=== PATIENT | female | born 1940 | race Caucasian/White ===

== ENCOUNTER 2017-03-04 14:14 | Outpatient (CLI) | payer MEDICARE, BC ==
[2014-05-20 06:21] VITALS: BP 120/74
[2017-03-04 14:38] LABS: BASOPHILS % 0.9 (0.0-1.5); EOSINOPHILS % 5.1 % (0.0-6.8); MONOCYTES % 7.8 % (0.0-11.0); NEUTROPHILS # 3.9 # k/uL (1.4-7.7)
[2017-03-04 15:03] LABS: eGFR (African) > 60; eGFR (Non-African) > 60
== END 2017-03-04 14:15 ==
LOC: LAB 14:14
PROVIDERS: ATTEND Family Medicine
DX: R53.83 Other fatigue (principal)
CPT/HCPCS: 36415; 80053; 84443; 85025

== ENCOUNTER 2017-07-10 13:34 | Outpatient (CLI) | payer MEDICARE, BC ==
[2014-05-20 06:21] VITALS: BP 120/74
--- NOTE | 2017-07-10 17:51 | Diagnostic Imaging Report ---
CARISSA GRIFFIN [facility] [address] [facility].[address] [address] Report Submission Date: July 10, 2017 2:01:11 PM CDT Patient Study Name: KWABENA AYON Date: July 10, 2017 1:41:58 PM CDT Modality Type: DX Gender: F Description: LOWER EXTREMITY : 40 Institution: [facility] Physician: CARISSA GRIFFIN Examination: Plain film left foot History: RT FOOT, PAIN IN BASE OF 4TH AND 5TH TOES FOR ABOUT A WEEK AND A HALF (Hx) Findings: 3 views of the left foot demonstrates osteopenia. Articular degenerative changes. Hallux valgus deformity 1st digit. No fracture line. Periosteal thickening 4th metatarsal. Calcaneal spurs. No soft tissue abnormality. Impression: Osteopenia and degenerative changes. No fracture. Electronically signed on July 10, 2017 2:01:11 PM CDT by: Baljit CARDOSO
== END 2017-07-10 13:35 ==
LOC: RAD 13:34
PROVIDERS: ATTEND Family Medicine
DX: M79.671 Pain in right foot (principal)
CPT/HCPCS: 73630

== ENCOUNTER 2017-11-27 11:07 | Outpatient (CLI) | payer MEDICARE, BC ==
[2014-05-20 06:21] VITALS: BP 120/74
--- NOTE | 2017-11-27 19:50 | Diagnostic Imaging Report ---
DREW GUADALUPE [facility] [address] [facility].[address] [address] Report Submission Date: Nov 27, 2017 1:36:57 PM CDT Patient Study Name: KWABENA AYON Date: Nov 27, 2017 11:30:31 AM CDT Modality Type: DX Gender: F Description: LOWER EXTREMITY : 40 Institution: [facility] Physician: DREW GUADALUPE Examination: Plain film left foot History: LEFT FOOT PAIN X1-2 WEEKS IN PROXIMAL 4TH METATARSAL BASE AREA (Hx) Findings: 3 weight bearing views of the left foot demonstrates diffuse osteopenia. Pes planus on lateral view. Articular degenerative changes. Hallux valgus deformity 1st digit. Articular degenerative changes. Impression: Osteopenia and degenerative changes. Pes planus and hallux valgus deformity. No acute cortical abnormality. Electronically signed on Nov 27, 2017 1:36:57 PM CDT by: Baljit CARDOSO
== END 2017-11-27 11:09 ==
LOC: RAD 11:07
PROVIDERS: ATTEND Podiatrist Foot & Ankle Surgery
DX: M79.672 Pain in left foot (principal)
CPT/HCPCS: 73630

== ENCOUNTER 2018-03-12 09:45 | Outpatient (CLI) | payer MEDICARE, BC ==
[2014-05-20 06:21] VITALS: BP 120/74
--- NOTE | 2018-03-18 16:14 | OP Clinic Progress Note ---
SUBJECTIVE: China Brown is a 77-year-old female who presented to the clinic today for a painful left great toenail. The patient states that she has had pain there for quite some time now and also admits having a history of knee replacements bilaterally. She usually has antibiotics given prior to dental work and I decided to give her some antibiotics today leaving in order to be extra cautious. The patient states that she has not done any treatment really on the nail but is grateful to come in and have the procedure performed to have the medial aspect of the left great toenail removed permanently. The risks and benefits were discussed and the consent was signed by the patient. She does not admit to any fevers, chills, nausea, vomiting, shortness of breath or chest pain at this time. She states that she had it trimmed out occasionally by Dr. Felix in the past and would like it fixed permanently at this time. OBJECTIVE: VITAL SIGNS: BP: 134/73, heart rate 65, R: 16. Pain is 5 out of 10. VASCULAR: There are 1+ DP and PT pulses bilaterally. There is capillary refill time that is immediate to the toes of the left foot, however. There is no edema noted of the left foot. DERMATOLOGIC: There is no erythema nor open lesions noted at the left great toe area medial border. There are no other skin lesions of concern at this time. There are no varicose veins noted of the left foot. MUSCULOSKELETAL: There is pain on palpation noted along the entire medial border of the left great toenail. There is severe hallux valgus noted as well bilaterally. There is also 2nd digit contraction noted bilaterally. The patient also has minor pain on palpation noted at the distal aspect of the medial right great toenail. It should be noted that this was trimmed back with a pair of nail nippers today before release. NEUROLOGIC: Light touch sensation is intact to the toes of the left foot. ASSESSMENT: 1. Onychocryptosis. L60.0. 2. Hallux valgus with bunions on the left foot. M20.12 and M21.612. 3. Acquired hammertoe of left foot. M20.42. The risks and benefits of a procedure to permanently remove the left great toenail medial border was discussed including, but not limited to, bleeding, infection, etc. The patient agreed by both written and verbal consent to go forward with the procedure at this time for a permanent medial partial nail avulsion. The patient had the postprocedure instructions given verbally consisting washing the foot prior to soaking in an Epsom salt soak bath and warm water or showering and making sure that she washes her toe last. The patient understands that she is not to bath at this time. The patient will leave the dressings today and change them the first time tomorrow and daily change them with antibiotic ointment and a Band-Aid. PROCEDURE #1: Left great toenail medial border partial nail avulsion with chemical matrixectomy. An alcohol swab was utilize to cleanse the toe and 7 mL of a 1:1 mix of 2% lidocaine plain and 0.5% Marcaine plain were injected and anesthesia was obtained. A Betadine swab was utilized to clean the toe. The great toe was exsanguinated and a tourniquet was applied at the base of the toe. The medial border of the toenail was then avulsed with nail splitters and hemostat. There was no remaining nail present in the nailfold after checking twice. Normal saline was utilized to clean the area. Phenol was then applied with cotton-tip applicators in increments of 45 seconds, 30 seconds, 30 seconds, and 30 seconds, totally 4 applications. The site was rinsed and diluted with a copious amount of 70% isopropyl alcohol. The tourniquet was then removed and prompt hyperemic response was noted to the toe. More isopropyl alcohol was utilized to rinse the remaining portion of the toe for safety. Hemostasis was then obtained with pressure and silver nitrate. Dressings were applied consisting of triple antibiotic ointment, gauze, 2-inch David, and 1-inch Coban. The patient tolerated the anesthesia and the procedure well. No further questions. Aftercare instructions were given as described above. PLAN: The patient will return to clinic in 1 week for follow up to make sure that it is healing well. We will likely switch bandage directions at that time and see her 2 weeks later for a final follow up hoping that it is all healed completely. Although her pulses were at 1+, I do believe that she will heal just fine, as she had immediate capillary refill time and warm toes. She also had some bleeding upon removal of the tourniquet, which is a good sign. Keflex 500 mg 1 capsule by mouth 4 times daily x7 days with zero refills was faxed to the patient's pharmacy and the patient will begin this immediately as a precaution/prophylaxis, as she has a history of bilateral knee replacements. We will see the patient in 1 week. JANAE
== END 2018-03-12 09:46 ==
LOC: POD 09:45
PROVIDERS: ATTEND Podiatrist Foot & Ankle Surgery
DX: L60.0 Ingrowing nail (principal); M20.12 Hallux valgus (acquired), left foot; M21.612 Bunion of left foot; M20.42 Other hammer toe(s) (acquired), left foot
CPT/HCPCS: 11730; 99213; G0463; J2001; J3490

== ENCOUNTER 2018-12-18 09:30 | Outpatient (CLI) | payer MEDICARE, OTHER ==
[2014-05-20 06:21] VITALS: BP 120/74
--- NOTE | 2018-12-18 11:55 | Diagnostic Imaging Report ---
PATIENT MR#: [id number] PATIENT PATIENT NAME: KWABENA AYON DATE OF : 1940 REFERRING PHYSICIAN: Fatuma Curiel EXAM DATE: 12/18/2018 ACCESSION NUMBER: [id number] EXAM DESCRIPTION: CHEST 2VIEW Indication: History of atrial fibrillation and shortness of breath with exertion. Technique: PA and lateral views of the chest were obtained. Comparison: None available. Findings: The cardiomediastinal silhouette is within normal limits in size. The thoracic aorta is mi ldly tortuous and calcified. There is no pulmonary edema or hilar enlargement. The lungs appear mildly hyperinflated. The lungs demonstrate no confluent opacities, pleural effusions, or pneumothoraces. The osseous structures of the chest demonstrate no acute abnormalities. Mild multilevel degenerative changes are seen in the thoracic sp ine. Impression: 1. No acute cardiopulmonary disease. 2. Mildly hyperinflated lungs suggestive of a degree of obstructive pulmonary disease. Read by: Dr. Red Wolf Transcribed by: Red Wolf Transcribed Date: 12/18/2018 11:54:54 AM Electronically signed by: Dr. Red Wolf Date signed: 12/18/2018 11:55:13 AM
== END 2018-12-18 09:35 ==
LOC: RAD 09:30
PROVIDERS: ATTEND Nurse Practitioner
DX: E78.00 Pure hypercholesterolemia, unspecified (principal); I10 Essential (primary) hypertension; I48.0 Paroxysmal atrial fibrillation; R06.02 Shortness of breath
CPT/HCPCS: 71046